=== PATIENT | male | born 1980 | race Caucasian/White ===

== ENCOUNTER 2016-11-03 08:15 | Emergency (ER) | payer OTHER ==
[~2016-11-03] VITALS: Ht 185.4 cm; Wt 101.7 kg
[~2016-11-03 08:15] MED LIST: PEN-VEE K,VEET500 MG PO; ULTRAM50 MG PO
[2016-11-03 11:44] LABS: EOSINOPHIL (%) 0.9 % (0-5); EOSINOPHIL COUNT 0.1 K/uL (0-0.3); HEMATOCRIT 34.5 % (38.0-50.0); IMMATURE GRANULOCYTE (%) 0.3 % (0.0-0.7); INSTRUMENT ABS NEUTROPHIL CT 5.9 K/uL; LYMPHOCYTE COUNT 1.2 K/uL (1.0-2.8); MCH 24.3 PG (29.0-34.0); MCV 78.4 FL (86-99); MEAN PLAT.VOLUME 12.3 uM^3 (9.0-12.4); MONOCYTE (%) 5.5 % (3-12); MONOCYTE COUNT 0.4 K/uL (0-0.8); NEUTROPHIL (%) 78.1 % (45-76); NEUTROPHIL COUNT 5.9 K/uL (1.8-6.4); PLATELET COUNT 138 K/uL (156-360); RBC DIS.WIDTH-CV 13.6 % (11.8-14.6); RBC DIS.WIDTH-SD 39.2 % (39-53); WHITE BLOOD COUNT 7.6 K/uL (4.1-10.2)
[2016-11-03 11:54] LABS: CHLORIDE 105 mEq/L (99-109); POTASSIUM 4.2 mEq/L (3.7-5.4); SODIUM 140 mEq/L (136-147)
[2016-11-03 11:56] LABS: GLUCOSE 89 mg/dL (70-99)
[2016-11-03 11:57] LABS: ANION GAP 11 MEQ/L (2-14)
[2016-11-03 11:59] LABS: GFR ESTIMATE (CALCULATED) > 59 mL/min/
[2016-11-03 12:00] LABS: UREA NITROGEN (BUN) 14 mg/dL (9-23)
[2016-11-03 12:06] LABS: D-DIMER ELISA 0.91 mg/L FEU (< 0.57); INTER. NORMALIZED RATIO 1.1; PROTHROMBIN TIME 11.1 (9.2-11.2); PTT 30.9 (25-32); TROP-I INTERPRETATION NEGATIVE; TROPONIN-I 0.01 ng/mL (0.0-0.30)
[2016-11-03] MEDS ORDERED: CLEOCIN300 MG PO (14:03)
[2016-11-03 14:20] VITALS: BP 129/78
== END 2016-11-03 14:21 | disposition home or self-care (01) ==
LOC: EME 08:15
PROVIDERS: Emergency Medicine
DX: I47.1 Supraventricular tachycardia (principal); R00.2 Palpitations; L03.116 Cellulitis of left lower limb; R60.0 Localized edema; Z91.19 Patient's noncompliance with other medical treatment and regimen; I10 Essential (primary) hypertension; Z72.0 Tobacco use
CPT/HCPCS: 71010; 71275; 80048; 83880; 84484; 85025; 85379; 85610; 85730; 93005; 93970; 99281; 99285; J1885

== ENCOUNTER 2017-02-27 23:54 | Inpatient (IN) | payer OTHER ==
[~2017-02-27] VITALS: Ht 185.4 cm; Wt 102.0 kg
[~2017-02-27 23:54] MED LIST changes: +CLEOCIN300 MG PO
[2017-02-28 03:18] LABS: TROP-I INTERPRETATION NEGATIVE; TROPONIN-I < 0.01 ng/mL (0.0-0.30)
[2017-02-28 03:19] LABS: ANION GAP 14 MEQ/L (2-14); CHLORIDE 106 MEQ/L (99-109); GFR ESTIMATE (CALCULATED) > 59 mL/min/; GLUCOSE 118 mg/dL (70-99); MAGNESIUM 1.7 mg/dl (1.3-2.7); POTASSIUM 3.5 MEQ/L (3.7-5.4); SODIUM 141 MEQ/L (136-147); UREA NITROGEN (BUN) 14 mg/dL (9-23)
[2017-02-28 03:20] LABS: EOSINOPHIL (%) 4.9 % (0-5); EOSINOPHIL COUNT 0.4 K/uL (0-0.3); IMMATURE GRANULOCYTE (%) 0.3 % (0.0-0.7); LYMPHOCYTE COUNT 2.5 K/uL (1.0-2.8); MCH 24.8 PG (29.0-34.0); MCHC 32.4 G/DL (30.0-36.0); MCV 76.6 FL (86-99); MONOCYTE COUNT 0.9 K/uL (0-0.8); NEUTROPHIL (%) 56.3 % (45-76); PLAT.SUFFICIENCY DECREASED; PLATELET CLUMPS PRESENT - PLATELET COUNTS APPEARS DECREASED; RBC DIS.WIDTH-CV 17.8 % (11.8-14.6); RBC DIS.WIDTH-SD 48.7 % (39-53); RED BLOOD COUNT 4.96 M/uL (4.00-5.50); WHITE BLOOD COUNT 8.9 K/uL (4.1-10.2)
[2017-02-28 03:24] LABS: ADD MEDTOX COMMENT Y; AMPHETAMINE NEGATIVE (500 ng/mL); BARBITURATES NEGATIVE (200 ng/mL); BENZODIAZEPINES NEGATIVE (150 ng/mL); COCAINE PRESUMPTIVE POSITIVE (150 ng/mL); INTERNAL CONTROLS VALID? YES; METHADONE NEGATIVE (200 ng/mL); METHAMPHETAMINE NEGATIVE (500 ng/mL); OPIATES (MORPHINE) PRESUMPTIVE POSITIVE (100 ng/mL); OXYCODONE NEGATIVE (100 ng/mL); PHENCYCLIDINE NEGATIVE (25 ng/mL); PROPOXYPHENE NEGATIVE (300 ng/mL); THC CANNABINOIDS NEGATIVE (50 ng/mL); TRICYCLIC ANTIDEPRESSANTS NEGATIVE (300 ng/mL)
[2017-02-28 04:22] LABS: DIRECT BILIRUBIN 0.8 mg/dL (0.0-0.3); SAMPLE HEMOLYSIS CHECK 0; SAMPLE ICTERIC CHECK 0; SAMPLE LIPEMIA CHECK 0; TOTAL BILIRUBIN 1.6 MG/DL (0.0-1.0)
[2017-02-28 05:29] VITALS: BP 132/80
[2017-02-28 06:34] LABS: ALKALINE PHOSPHATASE 190 IU/L (3-129)
[2017-02-28 08:20] VITALS: BP 112/59
[2017-02-28 09:55] LABS: ANION GAP 9 MEQ/L (2-14); CHLORIDE 109 MEQ/L (99-109); SAMPLE HEMOLYSIS CHECK 0; SAMPLE ICTERIC CHECK 0; SAMPLE LIPEMIA CHECK 0; SODIUM 140 MEQ/L (136-147)
[2017-02-28 09:56] LABS: POTASSIUM 4.3 MEQ/L (3.7-5.4)
[2017-02-28 10:01] LABS: GFR ESTIMATE (CALCULATED) > 59 mL/min/; GLUCOSE 93 mg/dL (70-99); UREA NITROGEN (BUN) 11 mg/dL (9-23)
[2017-02-28 10:02] LABS: TROP-I INTERPRETATION NEGATIVE; TROPONIN-I 0.09 ng/mL (0.0-0.30)
[2017-02-28 11:16] VITALS: BP 112/63
[2017-02-28 15:40] LABS: TROP-I INTERPRETATION NEGATIVE; TROPONIN-I 0.09 ng/mL (0.0-0.30)
[2017-02-28 16:43] VITALS: BP 134/83
[2017-02-28 19:37] VITALS: BP 131/83
[2017-02-28 23:54] VITALS: BP 152/82
[2017-03-01 04:01] VITALS: BP 131/76
[2017-03-01 08:00] VITALS: BP 128/77
[2017-03-01] MEDS ORDERED: DILTIAZEM 24HR120 MG PO (10:25)
== END 2017-03-01 12:21 | disposition home or self-care (01) | DRG 307 ==
LOC: EME 23:54 → EDOF 02-28 03:55 → ENRESERV 02-28 03:56 → 4EAST 02-28 05:14 → ENPENDDIS 03-01 → 4EAST 03-01 12:21
PROVIDERS: Emergency Medicine; Hospitalist
DX: I07.1 Rheumatic tricuspid insufficiency (principal); I47.1 Supraventricular tachycardia; I27.2 Other secondary pulmonary hypertension; I10 Essential (primary) hypertension; E87.6 Hypokalemia; G89.4 Chronic pain syndrome; F11.10 Opioid abuse, uncomplicated; F14.10 Cocaine abuse, uncomplicated; I45.10 Unspecified right bundle-branch block; F17.210 Nicotine dependence, cigarettes, uncomplicated; Z79.82 Long term (current) use of aspirin; Z88.1 Allergy status to other antibiotic agents
CPT/HCPCS: 71010; 80048; 80048 91; 80076; 83735; 83880; 84443; 84484; 84999; 85025; 85379; 93005; 93306; 99281; 99285; J0153; J1644; J2060; J7030

== ENCOUNTER 2017-03-21 08:01 | Emergency (ER) | payer OTHER ==
[~2017-03-21] VITALS: Ht 182.9 cm; Wt 108.4 kg
[~2017-03-21 08:01] MED LIST changes: +DILTIAZEM 24HR120 MG PO
[2017-03-21 09:41] LABS: EOSINOPHIL (%) 2.4 % (0-5); EOSINOPHIL COUNT 0.2 K/uL (0-0.3); HEMATOCRIT 39.5 % (38.0-50.0); IMMATURE GRANULOCYTE (%) 0.4 % (0.0-0.7); INSTRUMENT ABS NEUTROPHIL CT 6.7 K/uL; LYMPHOCYTE COUNT 1.5 K/uL (1.0-2.8); MCH 25.6 PG (29.0-34.0); MCHC 31.9 G/DL (30.0-36.0); MCV 80.1 FL (86-99); MEAN PLAT.VOLUME 11.3 uM^3 (9.0-12.4); MONOCYTE (%) 6.1 % (3-12); MONOCYTE COUNT 0.6 K/uL (0-0.8); NEUTROPHIL (%) 73.9 % (45-76); NEUTROPHIL COUNT 6.7 K/uL (1.8-6.4); PLATELET COUNT 266 K/uL (156-360); RBC DIS.WIDTH-CV 18.3 % (11.8-14.6); RBC DIS.WIDTH-SD 53.4 % (39-53); RED BLOOD COUNT 4.93 M/uL (4.00-5.50); WHITE BLOOD COUNT 9.1 K/uL (4.1-10.2)
[2017-03-21 09:51] LABS: CHLORIDE 104 mEq/L (99-109); POTASSIUM 4.6 mEq/L (3.7-5.4); SODIUM 139 mEq/L (136-147)
[2017-03-21 09:54] LABS: GLUCOSE 95 mg/dL (70-99)
[2017-03-21 09:55] LABS: ANION GAP 7 MEQ/L (2-14)
[2017-03-21 09:56] LABS: TOTAL BILIRUBIN 0.9 mg/dL (0.0-1.0)
[2017-03-21 09:57] LABS: ALKALINE PHOSPHATASE 108 IU/L (3-129); GFR ESTIMATE (CALCULATED) > 59 mL/min/
[2017-03-21 09:58] LABS: UREA NITROGEN (BUN) 17 mg/dL (9-23)
[2017-03-21 10:02] LABS: TROP-I INTERPRETATION NEGATIVE; TROPONIN-I < 0.01 ng/mL (0.0-0.30)
[2017-03-21 10:57] VITALS: BP 148/78
== END 2017-03-21 11:10 | disposition home or self-care (01) ==
LOC: EME 08:01
PROVIDERS: Emergency Medicine
DX: R00.2 Palpitations (principal); I10 Essential (primary) hypertension; I47.1 Supraventricular tachycardia; F17.200 Nicotine dependence, unspecified, uncomplicated
CPT/HCPCS: 71010; 80053; 84484; 85025; 93005; 99281; 99285

== ENCOUNTER 2017-04-02 02:09 | Emergency (ER) | payer OTHER ==
[~2017-04-02] VITALS: Ht 185.4 cm; Wt 104.7 kg
[2017-04-02] MEDS ORDERED: DILTIAZEM 24HR120 MG PO (03:20)
[2017-04-02 03:33] VITALS: BP 130/82
== END 2017-04-02 03:34 | disposition home or self-care (01) ==
LOC: EME 02:09
DX: I47.1 Supraventricular tachycardia (principal); Z76.0 Encounter for issue of repeat prescription; I10 Essential (primary) hypertension; F17.200 Nicotine dependence, unspecified, uncomplicated
CPT/HCPCS: 93005; 99281; 99284

== ENCOUNTER 2017-04-19 14:40 | Emergency (ER) | payer OTHER ==
[~2017-04-19] VITALS: Ht 185.4 cm; Wt 114.3 kg
[2017-04-19] MEDS ORDERED: DILTIAZEM 24HR120 MG PO (14:54)
[2017-04-19 15:38] VITALS: BP 152/87
== END 2017-04-19 16:11 | disposition home or self-care (01) ==
LOC: EME 14:40
DX: Z76.0 Encounter for issue of repeat prescription (principal); F17.200 Nicotine dependence, unspecified, uncomplicated
CPT/HCPCS: 99281; 99284

== ENCOUNTER 2017-05-29 12:07 | Emergency (ER) | payer OTHER ==
[~2017-05-29] VITALS: Ht 185.4 cm; Wt 107.7 kg
[2017-05-29] MEDS ORDERED: CARDIZEM SR120 MG PO (12:48)
[2017-05-29 13:29] VITALS: BP 135/75
== END 2017-05-29 13:30 | disposition home or self-care (01) ==
LOC: EME 12:07
DX: Z76.0 Encounter for issue of repeat prescription (principal); I10 Essential (primary) hypertension; R42 Dizziness and giddiness; F41.9 Anxiety disorder, unspecified; F17.200 Nicotine dependence, unspecified, uncomplicated
CPT/HCPCS: 99281; 99283